=== PATIENT | male | born 1990 | race Caucasian/White ===

== ENCOUNTER 2018-09-11 22:16 | Emergency (ER) | payer SELFPAY ==
[~2018-09-11] VITALS: Ht 154.9 cm; Wt 85.3 kg
[2018-09-11 22:21] VITALS: BP 129/78
--- NOTE | 2018-09-11 22:28 | NUR ---
PT AMBULATED W/ STEADY GATE TO BED 11, FAMILY AT BEDSIDE. SAFETY PRECAUTIONS IMPLEMENTED.
[2018-09-11] MEDS ORDERED: KETOROLAC 60 MG/2 ML VIAL IM ONE (22:30)
--- NOTE | 2018-09-11 22:30 | NUR ---
PT CAME INTO ER WITH C/O OF RIGHT SIDED RIB PAIN AFTER P/S FALL TODAY. PT HIT A PIECE OF FURNITURE. NO REDNESS, SWELLING OR BRUISING NOTED. DENIED HITTING HEAD NO LOSS OF CONSCIOUSNESS. A&O X4. PT PAIN LEVEL 10/10. SAFETY PRECAUTIONS IMPLEMENTED. WAITING FOR MD TO REEVALUATE. EMD MADE AWARE OF STATUS.
--- NOTE | 2018-09-11 22:36 | NUR ---
PT TO X-RAY VIA WHEELCHAIR BY TECH.
--- NOTE | 2018-09-11 22:50 | NUR ---
pt back from xray
[2018-09-11 23:12] VITALS: BP 129/78
--- NOTE | 2018-09-11 23:12 | NUR ---
Patient discharged with v/s stable. Written and verbal after care instructions given and explained. Patient alert, oriented and verbalized understanding of instructions. Ambulatory with steady gait. All questions addressed prior to discharge. ID band removed. Patient advised to follow up with PMD. Rx of NAPROSYN was given. Patient educated on indication of medication including possible reaction and side effects. Opportunity to ask questions provided and answered. Pain level decreased to 3/[address] Luo discharged the pt.
== END 2018-09-11 23:12 | disposition home or self-care (01) ==
LOC: MED 22:16
DX: S20.211A Contusion of right front wall of thorax, initial encounter (principal); W01.198A Fall on same level from slipping, tripping and stumbling with subsequent striking against other object, initial encounter; Y93.01 Activity, walking, marching and hiking; Y92.009 Unspecified place in unspecified non-institutional (private) residence as the place of occurrence of the external cause; Y99.8 Other external cause status
CPT/HCPCS: 71101; 96372; 99283; J1885